=== PATIENT | female | born 1975 | race African-American/Black ===

== ENCOUNTER 2024-10-08 19:45 | Inpatient (IN) | payer BC ==
[~2024-10-08] VITALS: Ht 157.5 cm; Wt 73.8 kg
--- NOTE | 2024-10-08 20:27 | ED.PDOC ---
HPI Comments 49-year-old female with a history of hyperlipidemia, asthma, migraines and SLE brought in by family, referred by Dr. Galarza[facility] urgent care for evaluation of chest pain. Patient states she has been having migraine headaches for about a week, today her headache started at around 9:00 a.m., however the symptoms were associated with lightheadedness. Patient states she feels like she is about to fall. The pain is localized from the frontal area and top of her head, radiates to the neck and both upper extremities, which she states is not typical of her regular migraines. She also reports retrosternal stabbing and tight chest pain which she also does not usually happen with her migraines. She does note she is recovering from a recent upper respiratory illness, still has a cough but states that is resolving. She states the chest pain has been persistent despite the improvement in her respiratory symptoms. The pain in her chest is worse with inspiration, cough, and palpation and radiates to the left parasternal area and left scapula. She denies any fever, shortness of breath, nausea, vomiting, diaphoresis or edema. Chief Complaint: Chest Pain Time Seen by MD: 19:48 Primary Care Provider: SELENE Allergies: Coded Allergies: Penicillins (Verified Allergy, Severe, 03/21/14) Home Meds Active Scripts Sumatriptan Succinate (Imitrex) 50 Mg Tab, 1 TAB PO DAILY PRN for 9 Days, #9 TAB 1 Refill Prov:SAM SMITH OXIDATION ENGINEER 10/09/24 Reported Medications Atorvastatin Calcium (Lipitor) 10 Mg Tab, 1 TAB PO DAILY, #30 TAB 5 Refills 10/09/24 Past Medical History PAST MEDICAL HISTORY: Anemia, Asthma, High Lipids Past Medical History (Other): SLE, migraines Surgical History: BTL COFFEE BLENDER History: No Pertinent COFFEE BLENDER History Family History Family History: Family hx of heart cristela, Family hx of HTN, Family hx of stroke Social History Smoker: Non-Smoker Alcohol: Denies ETOH Use Drugs: Denies Drug Use Lives In: Home All Other Systems: Reviewed and Negative (Comprehensive systems review obtained and negative except for what is stated in the HPI.) Physical Exam General Appearance: No Apparent Distress HEENT: PERRL/EOMI Neck: Full Range of Motion, Normal Inspection, Supple, Other (soft tissue tenderness at skull base and paraspinal muscles) Respiratory: Lungs Clear, No Respiratory Distress, Normal Breath Sounds, Other (reproducible chest pain with palpation of L parasternal chest wall and L scapular area) Cardiovascular: No Edema, No JVD, Regular Rate/Rhythm Breast Exam: Deferred Gastrointestinal: Non Tender, Soft Genitalia: Deferred Pelvic: Deferred Rectal: Deferred Extremities: Normal inspection, Normal range of motion, Non-tender, No pedal edema Neurologic: Alert (oriented x 4), Normal Affect, Normal Mood, Other (ambulatory without difficulty, no gross focal deficit) Cerebellar Function: NOT DONE Reflexes: NOT DONE Skin: Dry, Normal Color, Warm, Other (localized hyperpigmented rash midsternal area) Lymphatic: NOT DONE EKG EKG : Comments Sinus rhythm, rate 79, normal intervals, left axis deviation, low voltage in precordial leads, nonspecific T changes. Was a procedure done? Was a procedure done?: No CP Differential Dx Differential Diagnosis: Angina, Anxiety / Panic Attack, Heart Failure, IN, Pulmonary Embolus Other Differential Diagnosis SLE pain exacerbation, migraine headache, tension headache, vascular headache, metabolic headache Differential Diagnosis: CHF, HTN Encephalopathy Differential Diagnosis: Angina, Aortic dissection, Chest Wall Pain, Esophageal reflux/spasm, Gastritis, Pericarditis, Pneumonia, Pneumothorax X-Ray, Labs, Meds, VS Vital Signs Date Time Temp Pulse Resp B/P (MAP) Pulse Ox O2 Delivery O2 Flow Rate FiO2 10/08/24 22:06 96 16 96 Room Air* 0 21 10/08/24 22:03 98.0 96 16 132/53 (79) 96 98.0 10/08/24 20:00 97.6 96 16 130/76 (94) 97 10/08/24 19:54 79 Lab Test 10/08/24 20:50 10/08/24 20:08 Range/Units Troponin I High Sensitivity < 3 L < 3 L </=34 ng/L White Blood Count 9.5 4.4-10.8 10^3/uL Red Blood Count 5.57 H 4.0-5.20 10^6/uL Hemoglobin 9.9 L 12.2-16.2 g/dL Hematocrit 32.5 L 36.0-46.0 % Mean Corpuscular Volume 58.3 L 80.0-100.0 fL Mean Corpuscular Hemoglobin 17.7 L 28.0-32.0 pg Mean Corpuscular Hemoglobin Concent 30.5 L 32.0-36.0 g/dL Red Cell Distribution Width 22.8 H 11.8-14.3 % Platelet Count 567 H 140-450 10^3/uL Mean Platelet Volume 8.3 6.9-10.8 fL Neutrophils (%) (Auto) 60.7 37.0-80.0 % Lymphocytes (%) (Auto) 29.8 10.0-50.0 % Monocytes (%) (Auto) 7.8 0.0-12.0 % Eosinophils (%) (Auto) 1.1 0.0-7.0 % Basophils (%) (Auto) 0.6 0.0-2.0 % Neutrophils # (Auto) 5.8 1.6-8.6 10 ^3/uL Lymphocytes # (Auto) 2.8 0.4-5.4 10 ^3/uL Monocytes # (Auto) 0.7 0-1.3 10 ^3/uL Eosinophils # (Auto) 0.1 0-0.8 10 ^3/uL Basophils # (Auto) 0.1 0-0.2 10 ^3/uL Nucleated Red Blood Cells 0.2 % Platelet Estimate Increased Hypochromasia (manual) Marked Poikilocytosis (manual) Slight Anisocytosis (manual) Slight Microcytosis Marked Prothrombin Time 10.9 9.3-11.8 sec Prothrombin Time INR 1.03 0.9-1.15 Activated Partial Thromboplast Time 28.1 24.5-34.5 SEC D-Dimer, Quantitative 0.62 H 0.0-0.49 mg/L FEU Sodium Level 139 136-145 mmol/L Potassium Level 3.6 3.5-5.1 mmol/L Chloride Level 109 H 98-107 mmol/L Carbon Dioxide Level 21 20-31 mmol/L Anion Gap 9 5-15 Blood Urea Nitrogen 11 9-23 mg/dL Creatinine 0.70 0.550-1.02 mg/dL Glomerular Filtration Rate Calc 107 >90 mL/min BUN/Creatinine Ratio 15.7 10.0-20.0 Serum Glucose 90 74-106 mg/dL Calcium Level 10.0 8.7-10.4 mg/dL Total Bilirubin 0.5 0.2-1.0 mg/dL Aspartate Amino Transferase (AST) 15 13-40 U/L Alanine Aminotransferase (ALT) 11 7-40 U/L Alkaline Phosphatase 98 46-116 U/L B-Type Natriuretic Peptide 4.04 0-100 pg/mL Total Protein 7.5 5.7-8.2 g/dL Albumin 4.7 3.2-4.8 g/dL Beta HCG, Quantitative 0.2 L 1.5-4.2 mIU/mL PROCEDURE(s): HWOCT - HEAD WITHOUT CONTRAST REASON: headache dizzy ORDER NUMBER(s): [id number], ACCESSION NUMBER(s): [id number] EXAM: CT HEAD WITHOUT CONTRAST INDICATION: headache dizzy TECHNIQUE: CT of the head without intravenous contrast. Radiation Dose Information: CT Dose: CTDI volume is 50.91 mGy. Dose-length product is 714.39 mGy*cm The dose indicators for CT are the volume Computed Tomography (CT) Dose Index (CTDIvol) and the Dose Length Product (DLP), and are measured in units of mGy and mGy-cm, respectively. These indicators are not patient dose, but values generated from the CT scanner acquisition factors. The report includes radiation exposure data for exposures received during this examination. COMPARISON: None FINDINGS: There is no evidence of acute intracranial hemorrhage, extra-axial collection, mass effect, midline shift, herniation or hydrocephalus. The ventricles, sulci and cisterns are age appropriate. The kyle-white differentiation is intact. Patchy periventricular and subcortical white matter hypoattenuation is nonspecific but may be related to small vessel ischemic disease. The visualized paranasal sinuses and mastoid air cells are clear. The surrounding soft tissues and osseous structures are unremarkable. IMPRESSION: 1. No acute intracranial hemorrhage. 2. No CT findings of territorial ischemia. EDURE(s): CXRP - CHEST PORTABLE REASON: CP ORDER NUMBER(s): [id number], ACCESSION NUMBER(s): [id number] CHEST RADIOGRAPH Indication: CP Technique: Single frontal view of the chest was obtained Comparison: None FINDINGS: Lines and Tubes: None Lungs: No focal consolidation. Pleura: No effusion. No pneumothorax. Cardiomediastinal contours: Unremarkable Bones: No acute osseous abnormality. IMPRESSION: 1. No acute cardiopulmonary disease. HS:Y X-Ray, Labs, Meds, VS Comment 49-year-old female with a history of asthma, dyslipidemia, migraines, SLE complaining of a migraine headache radiating to her neck and bilateral upper extremities, associated with chest pain. Vitals unremarkable Exam remarkable for soft tissue tenderness at the skull base and in the paraspinal neck muscles, reproducible chest pain with palpation of the left parasternal area and left scapular area Rhythm strip independently interpreted by me: Sinus rhythm, rate 79, no ectopy. CT head unremarkable Chest x-ray unremarkable CT angio chest: Results pending CBC remarkable for hemoglobin 9.9, hematocrit 32.5, platelets 567, comprehensive metabolic panel unremarkable, BNP normal, troponin negative, coag panel normal, D-dimer elevated at 0.62, UA pending, hCG negative Patient treated with the following in the ED: 1 L 0.9 normal saline IV bolus, Reglan 10 mg IV, Toradol 30 mg IV, Robaxin 1 g p.o., aspirin 325 mg p.o. On re-evaluation, patient states she is still having chest pain. Headache has improved. Plan is to admit the patient for serial troponins and Cardiology evaluation Time of 1ST Reevaluation: 20:26 Reevaluation 1ST: Unchanged Patient Education/Counseling: Diagnosis, Treatment, Need For Follow Up Family Education/Counseling: No Family Present Departure 1 Departure Time of Disposition: 21:41 Impression: Primary Impression: Migraine Qualified Codes: G43.909 - Migraine, unspecified, not intractable, without status migrainosus Additional Impression: Chest pain Qualified Codes: R07.9 - Chest pain, unspecified Disposition: 09 ADMITTED INPATIENT Admit to: Tele Condition: Guarded e-Prescriptions Sumatriptan Succinate (Imitrex) 50 Mg Tab 1 TAB PO DAILY PRN for 9 Days, #9 TAB 1 Refill Prov: SAM SMITH NP 10/09/24 Critical Care Note Critical Care Time?: No Stability Stability form required: No Heart Score Heart Score: Heart Score Response (Comments) Value History Moderate Suspicious 1 EKG Repolarization Disturb 1 Age 45-64 1 Risk Factors 1 or 2 risk factors 1 Troponin Normal limit 0 Total 4 EUNICE DUKE MD Oct 08, 2024 20:27
--- NOTE | 2024-10-08 20:37 | DVH ---
EXAM: CT HEAD WITHOUT CONTRAST INDICATION: headache dizzy TECHNIQUE: CT of the head without intravenous contrast. Radiation Dose Information: CT Dose: CTDI volume is 50.91 mGy. Dose-length product is 714.39 mGy*cm The dose indicators for CT are the volume Computed Tomography (CT) Dose Index (CTDIvol) and the Dose Length Product (DLP), and are measured in units of mGy and mGy-cm, respectively. These indicators are not patient dose, but values generated from the CT scanner acquisition factors. The report includes radiation exposure data for exposures received during this examination. COMPARISON: None FINDINGS: There is no evidence of acute intracranial hemorrhage, extra-axial collection, mass effect, midline s hift, herniation or hydrocephalus. The ventricles, sulci and cisterns are age appropriate. The kyle-white differentiation is intact. Patchy periventricular and subcortical white matter hypoattenuation is nonspecific but may be related to small vessel ischemic disease. The visualized paranasal sinuses and mastoid air cells are clear. The surrounding soft tissues and osseous structures are unremarkable. IMPRESSION: 1. No acute intracranial hemorrhage. 2. No CT findings of territorial ischemia.
--- NOTE | 2024-10-08 20:42 | DVH ---
CHEST RADIOGRAPH Indication: CP Technique: Single frontal view of the chest was obtained Comparison: None FINDINGS: Lines and Tubes: None Lungs: No focal consolidation. Pleura: No effusion. No pneumothorax. Cardiomediastinal contours: Unremarkable Bones: No acute osseous abnormality. IMPRESSION: 1. No acute cardiopulmonary disease. HS:Y
[2024-10-08 20:45] LABS: Basophils # (auto) 0.1 10 ^3/uL (0-0.2); Basophils % (auto) 0.6 % (0.0-2.0); Eosinophils # (auto) 0.1 10 ^3/uL (0-0.8); Eosinophils % (auto) 1.1 % (0.0-7.0); Hematocrit 32.5 % (36.0-46.0); Hemoglobin 9.9 g/dL (12.2-16.2); Lymphocytes # (auto) 2.8 10 ^3/uL (0.4-5.4); Lymphocytes % (auto) 29.8 % (10.0-50.0); Mean Corpuscular Hemoglobin 17.7 pg (28.0-32.0); Mean Corpuscular Hgb Conc. 30.5 g/dL (32.0-36.0); Mean Corpuscular Volume 58.3 fL (80.0-100.0); Monocytes # (auto) 0.7 10 ^3/uL (0-1.3); Monocytes % (auto) 7.8 % (0.0-12.0); Neutrophils # (auto) 5.8 10 ^3/uL (1.6-8.6); Neutrophils % (auto) 60.7 % (37.0-80.0); Nucleated Red Blood Cells % 0.2 %; Platelet Count (auto) 567 10^3/uL (140-450); Red Blood Cells 5.57 10^6/uL (4.0-5.20); White Blood Cell 9.5 10^3/uL (4.4-10.8)
[2024-10-08 20:47] LABS: Red Cell Distribution Width 22.8 % (11.8-14.3)
[2024-10-08 21:23] LABS: INR 1.03 (0.9-1.15); Partial Thromboplastin Time 28.1 SEC (24.5-34.5); Prothrombin Time 10.9 sec (9.3-11.8)
[2024-10-08 21:45] LABS: Alanine Aminotransferase 11 U/L (7-40); Albumin 4.7 g/dL (3.2-4.8); Alkaline Phosphatase 98 U/L (46-116); Anion Gap 9 (5-15); Aspartate Aminotransferase 15 U/L (13-40); BUN/Creatinine Ratio 15.7 (10.0-20.0); Blood Urea Nitrogen 11 mg/dL (9-23); Carbon Dioxide 21 mmol/L (20-31); Glucose 90 mg/dL (74-106); Potassium 3.6 mmol/L (3.5-5.1); Sodium 139 mmol/L (136-145)
[2024-10-08 21:46] LABS: Bilirubin, Total 0.5 mg/dL (0.2-1.0); Total Protein 7.5 g/dL (5.7-8.2)
[2024-10-08 21:47] LABS: Chloride 109 mmol/L (98-107)
[2024-10-08 22:06] VITALS: PULSE 96; RESP 16; O2SAT 96
[2024-10-08] MEDS: ASPirin 325 MG TAB PO ONE (22:17)
[2024-10-08] MEDS: KETOROLAC TROMETH 30 MG/ML 1ML VIAL IV ONE (22:17)
[2024-10-08] MEDS: METHOCARBAMOL 500 MG TAB PO ONE (22:17)
[2024-10-08] MEDS: METOCLOPRAMIDE HCL 5MG/ml INJ 2ml VIAL IV ONE (22:17)
[2024-10-08] MEDS: IOHEXOL 350 MG/ML 100ML IJ ONE (22:18)
[2024-10-08] MEDS: SODIUM CHLORIDE 0.9% 1,000 ML IV ONE (22:18)
[2024-10-08 22:27] LABS: Anisocytosis Slight; Hypochromia Marked; Platelet Estimate Increased
--- NOTE | 2024-10-08 23:31 | DVH ---
CLINICAL HISTORY: cp, hi dimer r/o pe TECHNIQUE: CT angiogram of the chest was performed with intravenous contrast. 100 mL Omnipaque 350 in jected. 3D MIP reconstructed images were created and archived on the PACS system. This exam was perfo rmed according to our departmental dose optimization program. Up-to-date CT equipment and radiation d ose reduction techniques are utilized as appropriate. [Radimetrics Exposure Report] CTDI: [CTDIvol] DLP: 704.01 WID: COMPARISON: None FINDINGS: Lower Neck: Unremarkable Axilla, Mediastinum and Destiny: Unremarkable. Heart and Great Vessels: Upper limits of Normal-sized heart. Trace pericardial fluid. The thoracic ao rta is patent and normal caliber. There is no central segmental, or subsegmental pulmonary artery elder ling defect to suggest pulmonary embolism. Airway, Lungs and Pleura: Trachea and central airways are patent no airspace consolidation, pleural e ffusion, or pneumothorax. Chest Wall and Osseous Structures: No destructive osseous lesion. Upper abdomen: Cholecystectomy. IMPRESSION: No evidence of pulmonary embolism or acute abnormality of the chest.
[2024-10-08] MEDS ORDERED: HYDROcodone-ACET 5/325MG TAB PO PRN (23:45)
[2024-10-08] MEDS ORDERED: NITROGLYCERIN 0.4 MG SL TAB SL PRN (23:45)
[2024-10-08] MEDS ORDERED: ALBUTEROL SULF 2.5 MG/0.5ML(0.5%) NEB SOLN NEB PRN (23:45)
[2024-10-08] MEDS ORDERED: ACETAMINOPHEN 325 MG TAB PO PRN (23:45)
[2024-10-08] MEDS ORDERED: guaiFENesin-DM 100/10mg/5ml SYR PO PRN (23:45)
[2024-10-08] MEDS ORDERED: IPRATROPIUM BROM 0.5 MG/2.5ML INH SOL NEB PRN (23:45)
--- NOTE | 2024-10-08 23:45 | DVHHPRES ---
History of Present Illness Resident Creating Document: IGLESIA SALAS RESDIENT History of Present Illness This is a 49-year-old female with past medical history of hyperlipidemia, asthma, SLE, presented to hospital due to headache and chest pain. Patient states, she has a headache since 1 month which has worsened since 1 week, it is more localized on the frontal, top of the head and occipital ears, radiating to the right shoulder and hand, and previously was living with Tylenol but recently do not improved by taking Tylenol. She also complaining of occasional lightheadedness, cough and left-sided substernal localized chest pain with no radiation, the pain is stabbing in nature, 6/10 in intensity, which increased by cough. Patient has history of flu-like symptoms 3 weeks back, which subsequently developed dry cough and associated chest pain. She denies fever, shortness of breath, nausea vomiting, diaphoresis, and any recent sick contacts. PMHx: hyperlipidemia, asthma, SLE and headache since 1 month PSHx: Cholecystectomy, tubal ligation Family history: Noncontributory Social history: Lives at home with the family, ex-smoker, denies alcohol or any other drug use. Home medication: Rescue albuterol inhaler for asthma, atorvastatin for hyperlipidemia, stopped taking medicine for SLE 15 years back, Tylenol for the headache Allergic history: Penicillin PCP: Teo Aguilar Review of Systems Review of Systems General: patient denies fever, fatigue, weaknes, sweating, any recent changes in appetite and weight HEENT: Reports constant headache Cardiovascular: Reports localized chest pain Respiratory: Reports Dry cough Gastrointestinal: Denies nausea, vomiting, dysphagia, odynophagia, heartburn, abdominal pain, flatulence, bloating, diarrhea, constipation, change in stool, or blood in stool. Genitourinary: No dysuria, hematuria, discharge, frequency, urgency, nocturia, incontinence, and urinary retention. Endocrine: No heat or cold intolerance, polydipsia, polyuria, and polyphagia. Neurological: Reports lightheadedness Psychiatric: Denies depression, anxiety,or insomnia. Musculoskeletal: Denies neck pain, stiffness and swelling, back pain, muscle weakness, joint pain, stiffness, swelling, or limited range of motion. Skin: No rashes, itching, skin lesion, changes in hair, nail, skin texture and breast. Hematologic/Lymphatic: Denies easy bruising, bleeding tendencies, or lymph node enlargement. Allergies: Coded Allergies: Penicillins (Verified Allergy, Severe, 03/21/14) Exam Vital Signs Vital Signs Date Time Temp Pulse Resp B/P (MAP) Pulse Ox O2 Delivery O2 Flow Rate FiO2 10/08/24 22:06 96 16 96 Room Air* 0 21 10/08/24 22:03 98.0 132/53 (79) 98.0 Exam General Appearance: Alert, Oriented X3, Cooperative, No acute distress HEENT: Atraumatic, PERRLA, EOMI, Mucous membrane moist/pink Respiratory: Clear to auscultation, Normal air movement Cardiovascular: Regular rate, Normal S1, Normal S2, No murmurs, no chest wall tenderness Abdominal: Normal bowel sounds, Soft, No tenderness, No hepatospenomegaly, No masses Extremities: No clubbing, No cyanosis, No edema, Normal pulses, No tenderness/swelling Skin: No rashes, No breakdown, No significant lesion Neuro: Normal gait, Normal speech, Strength at 5/5 X4 ext, Normal tone, Sensation intact, Cranial nerves 3-12 NL, Reflexes 2+ Psych/Mental Status: Mental status NL, Mood NL Labs/Xrays Labs Test 10/08/24 20:50 10/08/24 20:08 Range/Units Troponin I High Sensitivity < 3 L </=34 ng/L White Blood Count 9.5 4.4-10.8 10^3/uL Red Blood Count 5.57 H 4.0-5.20 10^6/uL Hemoglobin 9.9 L 12.2-16.2 g/dL Hematocrit 32.5 L 36.0-46.0 % Mean Corpuscular Volume 58.3 L 80.0-100.0 fL Mean Corpuscular Hemoglobin 17.7 L 28.0-32.0 pg Mean Corpuscular Hemoglobin Concent 30.5 L 32.0-36.0 g/dL Red Cell Distribution Width 22.8 H 11.8-14.3 % Platelet Count 567 H 140-450 10^3/uL Mean Platelet Volume 8.3 6.9-10.8 fL Neutrophils (%) (Auto) 60.7 37.0-80.0 % Lymphocytes (%) (Auto) 29.8 10.0-50.0 % Monocytes (%) (Auto) 7.8 0.0-12.0 % Eosinophils (%) (Auto) 1.1 0.0-7.0 % Basophils (%) (Auto) 0.6 0.0-2.0 % Neutrophils # (Auto) 5.8 1.6-8.6 10 ^3/uL Lymphocytes # (Auto) 2.8 0.4-5.4 10 ^3/uL Monocytes # (Auto) 0.7 0-1.3 10 ^3/uL Eosinophils # (Auto) 0.1 0-0.8 10 ^3/uL Basophils # (Auto) 0.1 0-0.2 10 ^3/uL Nucleated Red Blood Cells 0.2 % Platelet Estimate Increased Hypochromasia (manual) Marked Poikilocytosis (manual) Slight Anisocytosis (manual) Slight Microcytosis Marked Prothrombin Time 10.9 9.3-11.8 sec Prothrombin Time INR 1.03 0.9-1.15 Activated Partial Thromboplast Time 28.1 24.5-34.5 SEC D-Dimer, Quantitative 0.62 H 0.0-0.49 mg/L FEU Sodium Level 139 136-145 mmol/L Potassium Level 3.6 3.5-5.1 mmol/L Chloride Level 109 H 98-107 mmol/L Carbon Dioxide Level 21 20-31 mmol/L Anion Gap 9 5-15 Blood Urea Nitrogen 11 9-23 mg/dL Creatinine 0.70 0.550-1.02 mg/dL Glomerular Filtration Rate Calc 107 >90 mL/min BUN/Creatinine Ratio 15.7 10.0-20.0 Serum Glucose 90 74-106 mg/dL Calcium Level 10.0 8.7-10.4 mg/dL Total Bilirubin 0.5 0.2-1.0 mg/dL Aspartate Amino Transferase (AST) 15 13-40 U/L Alanine Aminotransferase (ALT) 11 7-40 U/L Alkaline Phosphatase 98 46-116 U/L B-Type Natriuretic Peptide 4.04 0-100 pg/mL Total Protein 7.5 5.7-8.2 g/dL Albumin 4.7 3.2-4.8 g/dL Beta HCG, Quantitative 0.2 L 1.5-4.2 mIU/mL Assessment/Plan Assessment/Plan Acute pneumonitis Possible bronchitis History of asthma Headache, possibly migraine Chest x-ray shows no acute cardiopulmonary disease EKG shows normal sinus rhythm, with no acute ST or T-wave changes Serial trop I is within normal limits [place] and acetaminophen p.r.n. for pain Breathing treatment p.r.n. for asthma Robitussin p.r.n. for cough IV normal saline History of hyperlipidemia Atorvastatin 40 mg daily Ruled out pulmonary emboli D-dimer is raised at 0.6 CT angiogram is normal Doppler lower limb History of SLE Patient has stopped taking medication 15 years back, due to medication side effects Moderate anemia, microcytic hypochromic Per patient, she has long history of anemia Iron panel Fecal occult blood test Hyperchloremia, monitoring Thrombocytosis, likely reactive DIET: Cardiac diet DVT PROPHYLAXIS: Patient is ambulatory, no need for anticoagulant GI PROPHYLAXIS: No indication for a PPI CODE STATUS: Goal of care discussed with the patient, for the 23 minutes, full code DISPOSITION: Med/surge Patient's status discussed with the patient. Case discussed with Dr. Vidal Plan discussed with: Patient, Other (RN) Date of Service: Oct 08, 2024 Billing Provider: GERARDO VIDAL MD Common Visit Codes: 84794-UGCRTOV INP/OBS CARE (HIGH) Secondary Visit Codes: 55556-[id number] CARE PLAN 30 MINUTES IGLESIA SALAS Oct 08, 2024 23:45 GERARDO VIDAL MD Oct 09, 2024 08:24
[2024-10-09] VITALS (10 sets, daily range): BP systolic 99–132; BP diastolic 53–68; PULSE 76–84; RESP 18–20; TEMP 36.8; O2SAT 97–100
[2024-10-09] MEDS: ATORVASTATIN 20 MG TAB PO ONE (01:27)
[2024-10-09] MEDS: guaiFENesin-DM 100/10mg/5ml SYR PO ONE (01:27)
--- NOTE | 2024-10-09 01:51 | DVH ---
CLINICAL HISTORY: rasied D dimer shortness of breath TECHNIQUE: Color and duplex doppler imaging of the bilateral lower extremity veins was performed. Ves maribel compression if possible was also performed. WID: COMPARISON: None FINDINGS: Right Lower Extremity: Right common femoral vein: Normal compressibility and flow. Right femoral vein: Normal compressibility and flow. Right popliteal vein: Normal compressibility and flow. Proximal calf veins are normally compressible. Left Lower Extremity: Left common femoral vein: Normal compressibility and flow. Left femoral vein: Normal compressibility and flow. Left popliteal vein: Normal compressibility and flow. Proximal calf veins are normally compressible. IMPRESSION: NO SONOGRAPHIC EVIDENCE FOR DEEP VENOUS THROMBOSIS IN THE BILATERAL LOWER EXTREMITY VEINS.
--- NOTE | 2024-10-09 01:55 | DVH ---
US CAROTID DOPPLER CLINICAL INDICATION: dizziness TECHNIQUE: Multiple grayscale, color Doppler and spectral Doppler ultrasound images were obtained thr oughout both carotid systems. COMPARISON: None FINDINGS: RIGHT: CCA PSV: 79 cm/s ECA PSV: 59 cm/s ICA PSV: 111 cm/s ICA EDV: 79 cm/s ICA/CCA Ratio: Less than 2 Vertebral artery: Patent, antegrade flow. Grayscale images demonstrate no significant plaque or visible stenosis. Spectral analysis demonstrate s no hemodynamically significant CCA or ICA stenosis. LEFT: CCA PSV: 76 cm/s ECA PSV: 47 cm/s ICA PSV: 111 cm/s ICA EDV: 60 cm/s ICA/CCA Ratio: Less than 2 Vertebral artery: Patent, antegrade flow. Grayscale images demonstrate no significant plaque or visible stenosis. Spectral analysis demonstrate s no hemodynamically significant CCA or ICA stenosis. IMPRESSION: No evidence of hemodynamically significant CCA or ICA stenosis.
[2024-10-09] MEDS ORDERED: ATOR10TA PO (05:47)
[2024-10-09 06:21] LABS: Basophils # (auto) 0 10 ^3/uL (0-0.2); Eosinophils # (auto) 0.1 10 ^3/uL (0-0.8); Hematocrit 29.6 % (36.0-46.0); Hemoglobin 9.3 g/dL (12.2-16.2); Lymphocytes # (auto) 2.3 10 ^3/uL (0.4-5.4); Nucleated Red Blood Cells % 0.2 %
[2024-10-09 06:25] LABS: Basophils % (auto) 0.5 % (0.0-2.0); Eosinophils % (auto) 1.5 % (0.0-7.0); Lymphocytes % (auto) 30.6 % (10.0-50.0); Mean Corpuscular Hemoglobin 17.9 pg (28.0-32.0); Mean Corpuscular Hgb Conc. 31.4 g/dL (32.0-36.0); Monocytes # (auto) 0.6 10 ^3/uL (0-1.3); Monocytes % (auto) 7.8 % (0.0-12.0); Neutrophils # (auto) 4.4 10 ^3/uL (1.6-8.6); Neutrophils % (auto) 59.6 % (37.0-80.0); Platelet Count (auto) 512 10^3/uL (140-450); Red Blood Cells 5.19 10^6/uL (4.0-5.20); Red Cell Distribution Width 22.9 % (11.8-14.3); White Blood Cell 7.4 10^3/uL (4.4-10.8)
[2024-10-09 06:31] LABS: % Iron Saturation 7.8 % (15-50)
[2024-10-09 06:32] LABS: Alanine Aminotransferase 12 U/L (7-40); Albumin 4.2 g/dL (3.2-4.8); Alkaline Phosphatase 90 U/L (46-116); Anion Gap 8 (5-15); BUN/Creatinine Ratio 14.1 (10.0-20.0); Bilirubin, Total 0.4 mg/dL (0.2-1.0); Blood Urea Nitrogen 9 mg/dL (9-23); Calcium 9.6 mg/dL (8.7-10.4); Carbon Dioxide 24 mmol/L (20-31); Sodium 141 mmol/L (136-145); Total Protein 6.7 g/dL (5.7-8.2)
[2024-10-09 06:33] LABS: Aspartate Aminotransferase 10 U/L (13-40); Chloride 109 mmol/L (98-107); Glucose 129 mg/dL (74-106); Potassium 3.2 mmol/L (3.5-5.1)
[2024-10-09 07:17] LABS: Hypochromia Marked
[2024-10-09 07:18] LABS: Anisocytosis Slight
[2024-10-09 07:19] LABS: Large Platelets FEW; Platelet Estimate Increased
[2024-10-09] MEDS ORDERED: ACETAMINOPHEN 325 MG TAB PO PRN (10:00)
[2024-10-09] MEDS ORDERED: ALBUTEROL SULF 2.5 MG/0.5ML(0.5%) NEB SOLN NEB PRN (10:00)
[2024-10-09] MEDS ORDERED: IPRATROPIUM BROM 0.5 MG/2.5ML INH SOL NEB PRN (10:00)
[2024-10-09] MEDS ORDERED: NITROGLYCERIN 0.4 MG SL TAB SL PRN (10:00)
[2024-10-09] MEDS ORDERED: guaiFENesin-DM 100/10mg/5ml SYR PO PRN (10:00)
[2024-10-09] MEDS: HYDROcodone-ACET 5/325MG TAB PO PRN (10:05)
[2024-10-09] MEDS: POTASSIUM CHL 20 Meq TABLET PO ONE (16:05)
[2024-10-09 16:23] LABS: COVID19 ANTIGEN SOFIA FIA NEGATIVE (NEGATIVE); Rapid Influenza A Negative (Negative); Rapid Influenza B Negative (Negative)
[2024-10-09] MEDS ORDERED: SUMA50TA2 PO (16:25)
--- NOTE | 2024-10-09 16:29 | DVHDS2 ---
Discharge Summary Date of Admission Oct 08, 2024 at 23:44 Date of Discharge: Oct 09, 2024 Admitting Diagnosis Acute pneumonitis Labs/Diagnostic Data: Laboratory Results Test 10/09/24 15:45 10/09/24 05:13 10/08/24 20:50 10/08/24 20:08 Influenza Type A Antigen Negative (Negative) Influenza Type B Antigen Negative (Negative) SARS-CoV-2 Antigen (Rapid) Negative (NEGATIVE) White Blood Count 7.4 10^3/uL (4.4-10.8) Red Blood Count 5.19 10^6/uL (4.0-5.20) Hemoglobin 9.3 g/dL (12.2-16.2) Hematocrit 29.6 % (36.0-46.0) Mean Corpuscular Volume 57.0 fL (80.0-100.0) Mean Corpuscular Hemoglobin 17.9 pg (28.0-32.0) Mean Corpuscular Hemoglobin Concent 31.4 g/dL (32.0-36.0) Red Cell Distribution Width 22.9 % (11.8-14.3) Platelet Count 512 10^3/uL (140-450) Mean Platelet Volume 8.2 fL (6.9-10.8) Neutrophils (%) (Auto) 59.6 % (37.0-80.0) Lymphocytes (%) (Auto) 30.6 % (10.0-50.0) Monocytes (%) (Auto) 7.8 % (0.0-12.0) Eosinophils (%) (Auto) 1.5 % (0.0-7.0) Basophils (%) (Auto) 0.5 % (0.0-2.0) Neutrophils # (Auto) 4.4 10 ^3/uL (1.6-8.6) Lymphocytes # (Auto) 2.3 10 ^3/uL (0.4-5.4) Monocytes # (Auto) 0.6 10 ^3/uL (0-1.3) Eosinophils # (Auto) 0.1 10 ^3/uL (0-0.8) Basophils # (Auto) 0 10 ^3/uL (0-0.2) Nucleated Red Blood Cells 0.2 % Platelet Estimate Increased Large Platelets Few Hypochromasia (manual) Marked Poikilocytosis (manual) Slight Anisocytosis (manual) Slight Microcytosis Marked Sodium Level 141 mmol/L (136-145) Potassium Level 3.2 mmol/L (3.5-5.1) Chloride Level 109 mmol/L (98-107) Carbon Dioxide Level 24 mmol/L (20-31) Anion Gap 8 (5-15) Blood Urea Nitrogen 9 mg/dL (9-23) Creatinine 0.64 mg/dL (0.550-1.02) Glomerular Filtration Rate Calc 109 mL/min (>90) BUN/Creatinine Ratio 14.1 (10.0-20.0) Serum Glucose 129 mg/dL (74-106) Calcium Level 9.6 mg/dL (8.7-10.4) Iron Level 26 ug/dL (50-170) Total Iron Binding Capacity 332 ug/dL (250-425) Percent Iron Saturation 7.8 % (15-50) Ferritin 5.0 ng/mL (10-291) Total Bilirubin 0.4 mg/dL (0.2-1.0) Aspartate Amino Transferase (AST) 10 U/L (13-40) Alanine Aminotransferase (ALT) 12 U/L (7-40) Alkaline Phosphatase 90 U/L (46-116) Total Protein 6.7 g/dL (5.7-8.2) Albumin 4.2 g/dL (3.2-4.8) Vitamin B12 Level 574 pg/mL (211-911) Vitamin D 25-Hydroxy 15.2 ng/mL (30.0-100) Troponin I High Sensitivity < 3 ng/L (</=34) Prothrombin Time 10.9 sec (9.3-11.8) Prothrombin Time INR 1.03 (0.9-1.15) Activated Partial Thromboplast Time 28.1 SEC (24.5-34.5) D-Dimer, Quantitative 0.62 mg/L FEU (0.0-0.49) B-Type Natriuretic Peptide 4.04 pg/mL (0-100) Beta HCG, Quantitative 0.2 mIU/mL (1.5-4.2) Other Laboratory Tests 10/09/24 05:13 Brief Hx & Hospital Course: History of Present Illness This is a 49-year-old female with past medical history of hyperlipidemia, asthma, SLE, presented to hospital due to headache and chest pain. Patient states, she has a headache since 1 month which has worsened since 1 week, it is more localized on the frontal, top of the head and occipital ears, radiating to the right shoulder and hand, and previously was living with Tylenol but recently do not improved by taking Tylenol. She also complaining of occasional lightheadedness, cough and left-sided substernal localized chest pain with no radiation, the pain is stabbing in nature, 6/10 in intensity, which increased by cough. Patient has history of flu-like symptoms 3 weeks back, which subsequently developed dry cough and associated chest pain. She denies fever, shortness of breath, nausea vomiting, diaphoresis, and any recent sick contacts. Course of hospitalization: Patient had extensive workup including CT of the head, CT angiogram of the chest, DVT study of lower extremity, as well as carotid Doppler study. All tests have been negative. Troponins have been negative. EKG is of normal sinus rhythm without any ST changes. Further discussion with the patient reveals that her headache starts in the occipital area, radiating to her frontal lobe, and that is when she has incidental chest discomfort described as squeezing that resolves. Full discussion was made with the patient regarding all negative testing. She was agreeable to follow up with her PCP in one month at her established appointment. She will be given a shot of Toradol IV, and discharged with a prescription of sumatriptan. Physical exam General: Alert and Oriented x3. No acute distress. Well-nourished. Eyes: EOMI. Anicteric. HENT: Moist mucous membranes. Lungs: Clear to auscultation bilaterally. No accessory muscle use. Cardiovascular: Regular rate and rhythm. No murmur. No JVD. Abdomen: Soft, non-tender and non-distended. No palpable masses. Extremities: No edema. Non-tender. Skin: No rashes or lesions. Warm. Neurologic: No focal neurological deficits. CN II-XII grossly intact, but not individually tested. Psychiatric: Cooperative. Appropriate mood and affect. Total time spent with patient discussing and formulating plan of care: 35 minutes. This medical document was created using an electronic medical record system with [employer] system. Although this document has been carefully reviewed, there may still be some phonetic and typographical errors. These areas are purely typographical due to imperfections of the software programs, and do not reflect any compromise in the patient's medical care. Condition at Discharge: Good Final Diagnosis/Problems List Migraine headache Secondary Diagnosis: Dyslipidemia Discharge Disposition: Home Discharge Instruct/Medications Diet: Regular Activity: No Restrictions, As Tolerated Follow Up/Referral: Follow up with PCP at established appointment in approximately one month Medications: Sumitriptan 50mg po daily prn migraine [place] 36 Discharge Statement: "Patient was advised to return to the ER or call 911 if any headaches, dizziness, shortness of breath, chest pain, abdominal pain, bleeding, fevers, or worsening of medical condition. Patient was counseled about treatment plan, medications, possible side effects, patientverbalized understanding. All questions were answered to the best of my ability. This discharge took greater then 30 minutes in planning, reviewing documentation, counseling the patient, and discussing with other team members." ASSESSMENT ASSESSMENT Assessment Migraine headache Date of Service: Oct 09, 2024 Billing Provider: SAM SMITH NP Common Visit Codes: 74134-TWU/OBS DISCH DAY >30min SAM SMITH NP Oct 09, 2024 16:29
[2024-10-09] MEDS: KETOROLAC TROMETH 30 MG/ML 1ML VIAL IV ONE (16:53)
[2024-10-09] MEDS ORDERED: ATORVASTATIN 20 MG TAB PO SCH ×2 (22:00)
--- NOTE | 2024-10-11 08:39 | ECG ---
[facility] Test Date: 2024-10-08 Test Time: 19:54:48 Pat Name: MENDY HAWKINS Department: ER Room: [address] [place] [address] Gender: F Remote Advisor: EVELIO : [id number] Requested By: EUNICE SCHAEFFER Order Number: [id number] Reading MD: Measurements Intervals [place] Rate: 79 P: 61 MD: 156 QRS: 0 QRSD: 88 T: 41 QT: 396 QTc: 455 Interpretive Statements Sinus rhythm Low voltage, precordial leads Please click the below link to view image of tracing.
== END 2024-10-09 17:50 | disposition home or self-care (01) | DRG 103 ==
LOC: ER 19:45 → OVERFLOW 23:44 → UNDODISIN 23:45 → OVERFLOW 23:46
PROVIDERS: ADMIT Nurse Practitioner Acute Care; ATTEND Nurse Practitioner Acute Care
DX: G43.909 Migraine, unspecified, not intractable, without status migrainosus (principal); J45.909 Unspecified asthma, uncomplicated; Z20.822 Contact with and (suspected) exposure to COVID-19; E78.5 Hyperlipidemia, unspecified; Z82.49 Family history of ischemic heart disease and other diseases of the circulatory system; Z82.3 Family history of stroke; Z90.49 Acquired absence of other specified parts of digestive tract; Z79.899 Other long term (current) drug therapy
CPT/HCPCS: 36415; 70450; 71045; 71275; 80053; 82306; 82607; 82728; 83540; 83550; 83880; 84484; 84702; 85025; 85379; 85610; 85730; 87426; 87804; 93005; 93886; 93970; G0378; J1885